=== PATIENT | male | born 1975 | race Caucasian/White ===

== ENCOUNTER 2022-10-11 13:15 | Inpatient (IN) | payer MEDICAID, OTHER ==
--- NOTE | 2022-10-11 13:54 | ED ---
General Adult HPI - General Chief complaint: Psychiatric Symptoms Stated complaint: Mental Health Time Seen by Provider: 10/11/22 13:17 Source: patient, EMS, RN notes reviewed, old records reviewed Mode of arrival: EMS Limitations: no limitations - History of Present Illness Initial comments: Patient is a 47-year-old male with past medical history apparently for bipolar disorder who presents emergency department for psychiatric evaluation and is being petitioned by his mother. Patient refuses to answer any questions regarding his psychiatric state. Persistently states "I don't know anything." When I ask him medical questions, denies any other acute complaints otherwise and chest pain, abdominal pain, nausea, vomiting, cough. Presents for psy chiatric evaluation.Per EMS, patient flushed all of his medications down the toilet and he has a history of bipolar disorder. Patient refuses to answer questions regarding this. - Related Data Home Medications Medication Instructions Recorded Confirmed Albuterol Sulfate [Albuterol 2 puff PO RT-Q6H PRN 10/11/22 10/11/22 Sulfate Hfa] Atomoxetine HCl [Strattera] 100 mg PO DAILY 10/11/22 10/11/22 Docusate Sodium [Dok] 100 mg PO BID PRN 10/11/22 10/11/22 Ergocalciferol (Vitamin D2) 1,250 mcg PO WEEKLY 10/11/22 10/11/22 [Drisdol (50,000 Iu)] Ibuprofen [Motrin] 600 mg PO Q8HR PRN 10/11/22 10/11/22 Omeprazole [PriLOSEC] 20 mg PO DAILY 10/11/22 10/11/22 risperiDONE [RisperDAL] 2 mg PO TID 10/11/22 10/11/22 Allergies Allergy/AdvReac Type Severity Reaction Status Date / Time No Known Allergies Allergy Verified 10/11/22 15:01 Review of Systems ROS Statement: Those systems with pertinent positive or pertinent negative responses have been documented in the HPI. Review of Systems: CONST: Denies fever EYES: Denies blurry vision ENT: Denies nasal congestion C/V: Denies Chest pain RESP: Denies shortness of breath GI: Denies abdominal pain : Denies dysuria SKIN: Denies rash. MSK: Denies joint pain. NEURO: Denies headache ROS Other: All systems not noted in ROS Statement are negative. Past Medical History History of Any Multi-Drug Resistant Organisms: None Reported Past Psychological History: Bipolar Smoking Status: Current every day smoker Past Alcohol Use History: None Reported Past Drug Use History: None Reported General Exam - General Exam Comments Initial Comments: General: Appears in no acute distress. HEAD: Normal with no signs of head trauma. EYES: PERRLA, EOMI, conjunctiva normal, no discharge. Pupils 3 mm and equal bilaterally. ENT: Hearing grossly intact, normal oropharynx. RESPIRATORY: Clear breath sounds bilaterally. No wheezes, rales, or rhonchi. C/V: Regular rate and rhythm. S1 and S2 auscultated, peripheral pulses 2+ and intact throughout ABD: Abd is soft, nontender, nondistended EXT: no obvious deformity SKIN: No rashes or lesions observed on exposed skin. NEURO: Alert and oriented x 4. Moving all 4 extremities. Limitations: no limitations Course Vital Signs 10/11/22 10/11/22 13:23 15:29 Temperature 98.1 F Pulse Rate 111 H Respiratory 18 18 Rate Blood Pressure 158/103 O2 Sat by Pulse 98 Oximetry Medical Decision Making - Medical Decision Making Was pt. sent in by a medical professional or institution (, PA, BAKERY MACHINE MECHANIC, urgent care, hospital, or assisted...) When possible be specific @ -No Did you speak to anyone other than the patient for history (EMS, parent, family, police, friend...)? What history was obtained from this source @ -No Did you review nursing and triage notes (agree or disagree)? Why? @ -I reviewed and agree with nursing and triage notes Were old charts reviewed (outside hosp., previous admission, EMS record, old EKG, old radiological studies, urgent care reports/EKG's, assisted records)? Report findings @ -Petition was reviewed. Differential Diagnosis (chest pain, altered mental status, abdominal pain women, abdominal pain men, vaginal bleeding, weakness, fever, dyspnea, syncope, headache, dizziness, GI bleed, back pain, seizure, CVA, palpatations, mental health, musculoskeletal)? @ -Differential Mental Health Depression, anxiety, bipolar, psychosis, schizophrenia, borderline personality, situational depression, adjustment disorder, behavioral disorder, brain tumor, malingering, substance abuse, encephalopathy, medication reaction, dementia, hypothyroidism, degenerative neurologic disorder, lupus.... This is not meant to be all-inclusive list EKG interpreted by me (3pts min.). @ -None done X-rays interpreted by me (1pt min.). @ -None done CT interpreted by me (1pt min.). @ -None done U/S interpreted by me (1pt. min.). @ -None done What testing was considered but not performed or refused? (CT, X-rays, U/S, labs)? Why? @ -None What meds were considered but not given or refused? Why? @ -None Did you discuss the management of the patient with other professionals (professionals i.e. , PA, BAKERY MACHINE MECHANIC, lab, RT, psych nurse, social service manager, data operations director, teacher, transit police officer, oil field caser)? Give summary @ -EPS notified of the consult Was smoking cessation discussed for >3mins.? @ -No Was critical care preformed (if so, how long)? @ -No Were there social determinants of health that impacted care today? How? (Homelessness, low income, unemployed, alcoholism, drug addiction, transportation, low edu. Level, literacy, decrease access to med. care, residential, rehab)? @ -No Was there de-escalation of care discussed even if they declined (Discuss DNR or withdrawal of care, Hospice)? DNR status @ -No What co-morbidities impacted this encounter? (DM, HTN, Smoking, COPD, CAD, Cancer, CVA, ARF, Chemo, Hep., AIDS, mental health diagnosis, sleep apnea, morbid obesity)? @ -Bipolar Was patient admitted / discharged? Hospital course, mention meds given and route, prescriptions, significant lab abnormalities, going to OR and other pertinent info. @ -Based on the patient's presentation and physical exam, presents for psychiatric evaluation. Patient placed in green scrubs. BAT is 0. UDS is pending. There was ordered. Vital signs within acceptable limits. The patient requires psychiatric evaluation. He is medically cleared for evaluation at this time. Disposition is pending psychiatric evaluation. EPS notified. SAMAN Oconnor evaluated the patient. Determined that he does meet inpatient criteria. Patient will be admitted to inpatient psychiatry in stable condition. Undiagnosed new problem with uncertain prognosis? @ -No Drug Therapy requiring intensive monitoring for toxicity (Heparin, Nitro, I nsulin, Cardizem)? @ -No Were any procedures done? @ -No Diagnosis/symptom? @ -Encounter for psychiatric evaluation, acute psychosis Acute, or Chronic, or Acute on Chronic? @ -Acute Uncomplicated (without systemic symptoms) or Complicated (systemic symptoms)? @ -Complicated Side effects of treatment? @ -No Exacerbation, Progression, or Severe Exacerbation? @ -No Poses a threat to life or bodily function? How? (Chest pain, [place], [place], pneumonia, PE, COPD, DKA, ARF, appy, cholecystitis, CVA, Diverticulitis, Homicidal, Suicidal, threat to staff... and all critical care pts) @ -No - Lab Data Lab Results 10/11/22 Range/Units 14:33 Coronavirus (PCR) Not Detected (Not Detectd) Disposition Clinical Impression: Encounter for psychiatric assessment, Acute psychosis Disposition: TRANSFER TO PSYCH HOSP/UNIT Condition: Stable
[2022-10-11] MEDS ORDERED: LORazepam 1 MG TAB PO STA (14:01)
[2022-10-11] MEDS ORDERED: HALOPERIDOL LACTATE 5 MG/ML 1 ML VIAL IM PRN (14:02)
[2022-10-11] MEDS ORDERED: LORazepam 2 MG/ML INJ IM PRN (14:02)
[2022-10-11] MEDS ORDERED: MAG HYDROX/AL HYDROX/SIMETH 30 ML CUP PO PRN (15:24)
[2022-10-11] MEDS ORDERED: MAGNESIUM HYDROXIDE 2,400 MG/30 ML CUP PO PRN (15:24)
[2022-10-11] MEDS ORDERED: ALBUTEROL INHALER 60 PUFF/8 GM INHALER (MHU) INHALATION PRN (15:34)
[2022-10-11] MEDS: haloperidoL 5 MG TAB PO PRN (23:03)
[2022-10-11] MEDS: LORazepam 1 MG TAB PO PRN (23:03)
[2022-10-12] MEDS: LORazepam 2 MG/ML INJ IM PRN (01:04)
[2022-10-12] MEDS: HALOPERIDOL LACTATE 5 MG/ML 1 ML VIAL IM PRN (01:05)
[2022-10-12] MEDS: NICOTINE 14MG/24HR PATCH TRANSDERM SCH (02:16)
--- NOTE | 2022-10-12 09:00 | P.HP ---
Psychiatric H&P - . H&P Date: 10/12/22 History & Physical: Allergies Allergy/AdvReac Type Severity Reaction Status Date / Time No Known Allergies Allergy Verified 10/11/22 15:01 Vital Signs Temp 97.5 F L 10/11/22 16:46 Pulse 100 10/11/22 16:46 Resp 16 10/11/22 16:46 BP 143/83 10/11/22 16:46 Pulse Ox 98 10/11/22 16:46 FiO2 Intake & Output 10/11/22 10/12/22 10/12/22 18:59 06:59 18:59 Weight 134.717 kg Laboratory Last Values Coronavirus (PCR) Not Detected (Not Detectd) 10/11/22 14:33 10/12/22 08:53 Visit psychiatric assessment on Ariel Fernández who is a 47-year-old male with a history of bipolar disorder Patient was petitioned by his mother and brought to the ER for assessment and treatment Patient had become increasingly paranoid psychotic and delusional and was afraid of people trying to get him Patient had also been exhibiting delusional thinking where he thought that there were killers walking on the streets and was barricading himself in the house The patient blames it on his current medication adjustments by his psychiatrist Patient reports that he was doing well on Invega 8 mg a day but seemed to started to gain weight . Patient stated that they've been started Wellbutrin which made him more anxious and agitated and was switched to Strattera which seemed to agree well with him He states that he was up 100 mg of Strattera a day and was able to lose about 36 pounds and was more active and focused However at this then turned into agitation and paranoia and racing thoughts and delusional thinking and he stopped taking the Strattera He states that he would like to go back to the Risperdal as he was taking before Patient is also open to other medication adjustments. 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 Fair eye contact Speech: Patient's speech is with normal volume, spontaneity, and tone. Mood/Affect: Mood is "flat Suicidality/Homicidality: Patient reports no suicidal ideation. Perceptions: The patient does not endorse auditory hallucinations but no visual hallucinations. Though content/process: Coherent and relevant goal-directed Memory and concentration: Grossly intact for the purposes of this session. Judgment and insight: Fair Diagnostic impression: Bipolar disorder recurrent manic type Adjustment disorder with disturbance of affect and conduct Alcohol use disorder by history in partial remission Plan: -Patient continues to meet criteria for inpatient psychiatric admission for symptom stabilization and safety. -Medications: We'll start the patient on Risperdal 2 mg twice a day and Depakote 500 mg twice a day to start within titrated to response Patient was briefed on the effects and side effects of the medication H he appears to understand well Patient at this time does not exhibit any bizarre behavior agitation and aggres aure or impulsive behavior continue close observation and supportive care -When necessary Ativan and Haldol for agitation/aggression. -NRT - nicotine patch -SW on board for discharge planning. Encouraged the patient to participate in milieu. Martin Hazel M.D.
[2022-10-12] MEDS: risperiDONE 2 MG TAB PO SCH ×2 (09:28→19:09)
[2022-10-12] MEDS: DIVALPROEX 500 MG TABLET.DR PO SCH ×2 (09:28→19:09)
--- NOTE | 2022-10-12 16:22 | P.PN ---
Progress Note - Text Progress Note Date: 10/12/22 Discussed with nursing and patient is currently not appropriate for medical evaluation. He was agitated and is now resting and they do not want him disturbed.
[2022-10-12 19:26] LABS: Appearance,Urine Clear (Clear); Bilirubin,Urine Negative (Negative); Blood,Urine Negative (Negative); Color,Urine Yellow; Glucose,Urine (UA) Negative (Negative); Ketones,Urine Negative (Negative); Leukocyte Esterase,Urine Negative (Negative); Nitrite,Urine Negative (Negative); PH, Urine 5.5 (5.0-8.0); Protein,Urine Trace (Negative); Specific Gravity,Urine 1.029 (1.001-1.035); Urobilinogen,Urine <2.0 mg/dL (<2.0)
[2022-10-12 19:43] LABS: Amphetamine Screen,Urine Not Detected (NotDetected); Barbiturate Screen,Urine Not Detected (NotDetected); Benzodiazepines Screen,Urine Detected (NotDetected); Cocaine Screen,Urine Not Detected (NotDetected); Methadone Screen, Urine Not Detected (NotDetected); Opiate Screen,Urine Not Detected (NotDetected); Oxycodone Screen, Urine Not Detected (NotDetected); Phencyclidine Screen,Urine Not Detected (NotDetected); Tricyclic Antidepressant,Urine Not Detected (NotDetected); Urn Cannabinoid Scrn Not Detected (NotDetected)
[2022-10-13] MEDS: risperiDONE 2 MG TAB PO SCH (08:07)
[2022-10-13] MEDS: NICOTINE 14MG/24HR PATCH TRANSDERM SCH ×2 (08:07→14:04)
[2022-10-13] MEDS: DIVALPROEX 500 MG TABLET.DR PO SCH (08:08)
--- NOTE | 2022-10-13 11:24 | P.PN ---
Progress Note - Text Progress Note Date: 10/13/22 Interval History: Patient was seen [wandering the hallways] at the nurse's desk, frequently emiliano nding and yelling out to be released from the unit. She was directable and agreeable to speak with copy writer in the office. Patient appeared to have very poor insight and judgment, he was fairly focused on discharge and minimizing his need for treatment. He claims that "I signed myself and I can sign myself out". He states that he is only wanted to take Risperdal at this time does not want any other medications. He claims that his grandmother can come pick him up right now. He is very poor impulse control, yelling at times and demanding. Denied any problems with his mood. He did not describe fully to situation 11, and at the hospital and was minimizing it. At this time patient denies any suicidal or homical ideations, intent or plan. Patient denies any auditory, visual hallucinations and denies any paranoia or delusions. Patient stopped taking the Depakote yesterday after the first dose due to possible side effects. Mental Status Exam: General Appearance: Patient appears to be tall, shaved head, stated age is alert, and is uncooperative, demanding. Behavior: Patient is sitting up without any agitated behavior. Irritable. Demanding. Speech: Patient's speech is with loud volume, spontaneity, and tone. Mood/Affect: Mood is "okay" and denies any depression, affect is constricted. Suicidality/Homicidality: Patient reports no suicidal ideation, denies any homicidal ideations. Perceptions: The patient does not endorse auditory hallucinations but no visual hallucinations. Though content/process: Coherent, concrete. Demanding focused on discharge. Minimizing. Memory and concentration: Grossly intact for the purposes of this session. Alert and oriented 3. Judgment and insight: Poor and impulsive Diagnostic impression: Bipolar disorder recurrent manic type Adjustment disorder with disturbance of affect and conduct Alcohol use disorder nicotine dependence Plan: -Patient continues to meet criteria for inpatient psychiatric admission for symptom stabilization and safety. Will complete petition and two certificates today as patient has very poor insight and judgment and non ocmpliant with meds. -Medications: increase Risperdal 3 mg twice a day for mood stabilization/psychosis, d/c depakote due to possible s/e. -When necessary Ativan and Haldol for agitation/aggression. -NRT - nicotine patch -SW on board for discharge planning. Encouraged the patient to participate in milieu. will await deferral and court hearing date.
[2022-10-13] MEDS ORDERED: risperiDONE 2 MG TAB PO STA (11:39)
[2022-10-13 13:25] LABS: Potassium 4.1 mmol/L (3.5-5.1)
[2022-10-13 13:26] LABS: ALT 95 U/L (4-49); AST 123 U/L (17-59); African American GFR (CKD) >90 (>60 ml/min/1.73 sqM); Albumin 4.5 g/dL (3.5-5.0); Alkaline Phosphatase 78 U/L (38-126); Anion Gap 6 mmol/L; Blood Urea Nitrogen 12 mg/dL (9-20); Calcium 9.2 mg/dL (8.4-10.2); Carbon Dioxide 27 mmol/L (22-30); Chloride 106 mmol/L (98-107); Glucose 132 mg/dL (74-99); Non-African American GFR(CKD) >90 (>60 ml/min/1.73 sqM); Sodium 139 mmol/L (137-145); Total Bilirubin 0.6 mg/dL (0.2-1.3); Total Protein 7.3 g/dL (6.3-8.2)
[2022-10-13] MEDS: ACETAMINOPHEN TAB 325 MG TAB PO PRN (15:03)
[2022-10-13] MEDS: risperiDONE 1 MG TAB PO SCH (19:57)
[2022-10-13] MEDS: IBUPROFEN 600 MG TAB PO PRN (20:32)
[2022-10-14] MEDS: ACETAMINOPHEN TAB 325 MG TAB PO PRN (00:36)
[2022-10-14] MEDS: NICOTINE 14MG/24HR PATCH TRANSDERM SCH (08:17)
[2022-10-14] MEDS: risperiDONE 1 MG TAB PO SCH (09:48)
--- NOTE | 2022-10-14 09:59 | P.PN ---
Progress Note - Text Progress Note Date: 10/14/22 Interval History: Patient was seen near the nurse's desk today, he apparently has been hanging out in the hallways and demanding discharge several times. He was approached by sheet writer and asked if he wanted to speak multiple times however patient refused to acknowledge sheet writer and did not answer any questions. Staff claims the patient has been paranoid and fairly focused on his medication regimen taking Risperdal 4 times a day. Mental Status Exam: General Appearance: Patient appears to be tall, shaved head, stated age is alert, and is uncooperative Behavior: Paranoid and uncooperative. Speech: Patient's speech is with loud volume, spontaneity, and tone. Mood/Affect: Unable to assess Suicidality/Homicidality: Unable to assess Perceptions: The patient unable to assess Though content/process: Unable to assess Memory and concentration: Unable to assess Judgment and insight: Poor and impulsive Diagnostic impression: Bipolar disorder recurrent manic type Adjustment disorder with disturbance of affect and conduct Alcohol use disorder nicotine dependence Plan: -Patient continues to meet criteria for inpatient psychiatric admission for symptom stabilization and safety. Will complete petition and two certificates today as patient has very poor insight and judgment and non ocmpliant with meds. -Medications: Risperdal 3 mg twice a day for mood stabilization/psychosis. may need to change patients antipsychotic if patient is not improving. -When necessary Ativan and Haldol for agitation/aggression. -NRT - nicotine patch -SW on board for discharge planning. Encouraged the patient to participate in milieu. will await deferral and court hearing date.
[2022-10-14] MEDS: risperiDONE 2 MG TAB PO SCH ×2 (13:43→20:04)
[2022-10-14] MEDS: ERGOCALCIFEROL 1,250 MCG (50,000 IU) CAPSULE PO SCH (14:42)
[2022-10-14] MEDS: IBUPROFEN 600 MG TAB PO PRN (14:43)
[2022-10-15] MEDS: NICOTINE 14MG/24HR PATCH TRANSDERM SCH (07:40)
[2022-10-15] MEDS ORDERED: risperiDONE 2 MG TAB PO SCH ×2 (09:00→13:00)
[2022-10-15] MEDS: IBUPROFEN 600 MG TAB PO PRN (09:14)
[2022-10-15] MEDS: risperiDONE 2 MG TAB PO SCH ×2 (12:00→19:39)
--- NOTE | 2022-10-15 12:04 | P.PN ---
Progress Note - Text Progress Note Date: 10/15/22 Interval History: Patient was seen during hallways, she was agreeable to be directed today in his room. He thanked sports writer for putting him back on the Risperdal at his previous dose. He states that he is doing a bit better today with his mood. He claims that he is having less racing thoughts. We spoke about transitioning onto long- acting injection and patient was agreeable to it. He asked questions about it. He states that he was able to sleep better last night with medications. He sta johanna that he has not been going to many groups. Has been showering. He claimed that his appetite is fair at this time. At this time is denying any auditory or visual hallucinations. Denying any suicidal or homicidal ideations intent or plan. He is not reporting any side effects. Mental Status Exam: General Appearance: Patient appears to be tall, shaved head, stated age is alert, and is more cooperative today. Behavior: As paranoid, more cooperative. Speech: Patient's speech is with loud volume, spontaneity, and tone. On [place] Mood/Affect: Claims that his mood is improving, affect is concrete and constricted. Suicidality/Homicidality: Denies Perceptions: Denies Though content/process: [place], poverty of content. Logical. Memory and concentration: Alert and oriented 3, following commands. Judgment and insight: Poor, improving mildly Diagnostic impression: Bipolar disorder recurrent manic type Adjustment disorder with disturbance of affect and conduct Alcohol use disorder nicotine dependence Plan: -Patient continues to meet criteria for inpatient psychiatric admission for symptom stabilization and safety. Will complete petition and two certificates today as patient has very poor insight and judgment and non ocmpliant with meds. -Medications: decrease Risperdal to 2mg + 4 mg a day for mood stabilization/psychosis. patiet is agreeable to transitioned onto HORTON starting today. patient will need a second dose likely thursday. -When necessary Ativan and Haldol for agitation/aggression. -NRT - nicotine patch -SW on board for discharge planning. Encouraged the patient to participate in milieu. will await deferral and court hearing date. possible d/c thursday - thursday if paitent defers and takes the HORTON to ensure compliance.
[2022-10-15] MEDS ORDERED: PALIPERIDONE IM 234 MG/1.5 ML SYG IM ONE (18:00)
[2022-10-16] MEDS: NICOTINE 14MG/24HR PATCH TRANSDERM SCH (07:46)
[2022-10-16] MEDS: IBUPROFEN 600 MG TAB PO PRN ×2 (09:59→18:35)
--- NOTE | 2022-10-16 11:14 | P.PN ---
Progress Note - Text Progress Note Date: 10/16/22 Interval History: Patient was seen standing near the door with his belongings looking at the door. Trench Shovel Operator attempted to speak with patient and patient was initially nonresponsive and ignoring procedure writer however after procedure writer called a second and third time patient turned to him and claims that "I'm waiting for my girlfriend and grandmother to pick me up". He states that he is doing fine at this time. He appears to have very poor insight into his condition and need for treatment. He continues to be fairly focused on his strict medication regimen. He states that he is doing a bit better today with his mood. He claims that he is having less racing thoughts. She'll receive the long-acting injection yesterday loading dose. He asked questions about it. He states that he was able to sleep better last night with medications. He states that he has not been going to many groups. He claimed that his appetite is fair at this time. He remains focused on discharge. At this time is denying any auditory or visual hallucinations. Denying any suicidal or homicidal ideations intent or plan. He is not reporting any side effects. Mental Status Exam: General Appearance: Patient appears to be tall, shaved head, stated age is alert, and is more cooperative today. Superficial. Behavior: As paranoid, more cooperative. Speech: Patient's speech is with loud volume, spontaneity, and tone. [place] Mood/Affect: Claims that his mood is improving, affect is concrete and constricted. Suicidality/Homicidality: Denies Perceptions: Denies Though content/process: [place], poverty of content. Is on discharge. Memory and concentration: Alert and oriented 3, following commands. Judgment and insight: Chronically Poor, improving mildly Diagnostic impression: Bipolar disorder recurrent manic type Adjustment disorder with disturbance of affect and conduct Alcohol use disorder nicotine dependence Plan: -Patient continues to meet criteria for inpatient psychiatric admission for symptom stabilization and safety. Will complete petition and two certificates today as patient has very poor insight and judgment and non ocmpliant with meds. -Medications: decrease Risperdal to 2mg + 3 mg a day for mood stabilization/psychosis. Patient received Invega Sustenna 234 mg IM on 10/15, next dose will be due on 10/20 of 156 mg IM, his monthly maintenance dose will be 234 mg which will be due on 11/09. -When necessary Ativan and Haldol for agitation/aggression. -NRT - nicotine patch -SW on board for discharge planning. Encouraged the patient to participate in milieu. will await deferral and court hearing date. possible d/c thursday - thursday if paitent defers and takes the HORTON to ensure compliance.
[2022-10-16] MEDS: haloperidoL 5 MG TAB PO PRN (12:05)
[2022-10-16] MEDS: LORazepam 1 MG TAB PO PRN (12:05)
[2022-10-16] MEDS: risperiDONE 2 MG TAB PO SCH (12:05)
[2022-10-16] MEDS: risperiDONE 1 MG TAB PO SCH (20:00)
[2022-10-17] MEDS: NICOTINE 14MG/24HR PATCH TRANSDERM SCH (08:27)
--- NOTE | 2022-10-17 11:28 | P.PN ---
Progress Note - Text Progress Note Date: 10/17/22 Interval History: Patient was seen standing near the door and wandering the hallways. He contin ues to have his belongings with him. He remains focused on discharge. He continues to randomly endorse paranoid ideations. He informed keno writer that the breakfast sausage that he had this morning was "poison" he continues to endorse suspiciousness towards a keno writer and other staff members on the unit. He continues to be very focused on his strict medication regimen taking Risperdal 3 times a day. Assistant Cross Country Coach attempted to speak with him about the transition onto long- acting injection and patient claims that "now I just want to be on my pills". continues to have limited insight/judgment. continue to be irritable and labile. States that he is sleeping fairly at nighttime, has fair appetite. Has not been going to groups. At this time is denying any auditory or visual hallucinations. Denying any suicidal or homicidal ideations intent or plan. He is not reporting any side effects. Mental Status Exam: General Appearance: Patient appears to be tall, shaved head, stated age is alert, and is difficult to interact with. Behavior: As paranoid, bizarre and loud. Speech: Patient's speech is with loud volume, spontaneity, and tone. [place] Mood/Affect: Claims that his mood is "okay", affect is concrete and constricted. Suicidality/Homicidality: Denies Perceptions: Denies Though content/process: [place], poverty of content. Focused on discharge Memory and concentration: Alert and oriented 3, following commands. Judgment and insight: Chronically Poor, improving mildly Diagnostic impression: Bipolar disorder recurrent manic type Adjustment disorder with disturbance of affect and conduct Alcohol use disorder nicotine dependence Plan: -Patient continues to meet criteria for inpatient psychiatric admission for symptom stabilization and safety. Will complete petition and two certificates today as patient has very poor insight and judgment and non ocmpliant with meds. -Medications: decrease Risperdal to 3 mg qhs for mood stabilization/psychosis. Patient received Invega Sustenna 234 mg IM on 10/15, next dose will be due on 10/20 of 156 mg IM, will re-evaluate on thursday whether or not patient will need to switched onto more potent antipsychotic such as haldol vs prolixin. -When necessary Ativan and Haldol for agitation/aggression. -NRT - nicotine patch -SW on board for discharge planning. Encouraged the patient to participate in milieu. will await deferral and court hearing date.
[2022-10-17 13:24] LABS: African American GFR (CKD) >90 (>60 ml/min/1.73 sqM); Anion Gap 6 mmol/L; Blood Urea Nitrogen 10 mg/dL (9-20); Carbon Dioxide 31 mmol/L (22-30); Chloride 102 mmol/L (98-107); Glucose 109 mg/dL (74-99); Non-African American GFR(CKD) >90 (>60 ml/min/1.73 sqM); Potassium 4.7 mmol/L (3.5-5.1); Sodium 139 mmol/L (137-145)
[2022-10-17] MEDS: IBUPROFEN 600 MG TAB PO PRN (16:19)
[2022-10-17] MEDS: risperiDONE 1 MG TAB PO SCH (20:03)
[2022-10-18] MEDS: haloperidoL 5 MG TAB PO PRN ×2 (03:57→15:02)
[2022-10-18] MEDS: HALOPERIDOL LACTATE 5 MG/ML 1 ML VIAL IM PRN (07:27)
[2022-10-18] MEDS: LORazepam 2 MG/ML INJ IM PRN (07:27)
[2022-10-18] MEDS: NICOTINE 14MG/24HR PATCH TRANSDERM SCH (09:09)
[2022-10-18] MEDS: IBUPROFEN 600 MG TAB PO PRN (09:12)
[2022-10-18] MEDS ORDERED: HALOPERIDOL LACTATE 5 MG/ML 1 ML VIAL IM STA (15:44)
[2022-10-18] MEDS ORDERED: diphenhydrAMINE 50 MG/ML 1 ML VIAL IM STA (15:44)
[2022-10-18] MEDS ORDERED: LORazepam 2 MG/ML INJ IM STA (15:46)
[2022-10-18] MEDS ORDERED: risperiDONE 2 MG TAB PO STA (16:47)
--- NOTE | 2022-10-18 18:51 | P.PN ---
Progress Note - Text Progress Note Date: 10/18/22 Interval History: Patient was seen wandering the hallways and often lingering by the exit door holding onto his belongings. His presence is intimidating and he appears to have poor boundaries, so he was evaluated in the hallway near staff. He has had episodes of being disruptive on the unit, attending to internal stimuli, restless, checking the exit doors in hopes of eloping from the unit, focused on discharge. Per nursing report, he was awake most of the night and could be heard yelling from his room, talking about his grandmother "I am in heavens with my grandmother. Where is my grandmother? She is coming today!" So far today he has received Haldol 5 mg po x 2, Haldol 5 mg IM x 2, and Ativan 2 mg IM x 2, and Benadryl 50 mg IM x 1 for agitation and psychosis, with some benefit however he still continues to be active on the unit and linger by the doors of the unit. He was observed walking rapidly in the hallways with his fingers in this ears, as if he is trying to block out the voices. He told the nurse today his grandmother is rising up and down the elevator. After receiving his PRNs, he tells me he would like his Risperdal increased to 2 mg TID because he is hearing too many voices, and would like the Risperdal scheduled for 8am, noon and 8pm. He receive d his Invega Sustenna 234 mg IM on 10/15 and will due to the 156 mg IM booster on 10/20. At this time patient does not report any suicidal or homicidal ideations, intent or plan. Patient admits to auditory hallucinations and paranoia. Patient denies any side effects from the medications and has been compliant with meds. Mental Status Exam: General Appearance: Patient appears to be stated age, is tall obese male with intimidating presence. Behavior: Patient is restless, walking in the hallways with his fingers in his ears or lingering by the exit doors hoping to elope from the unit/ Speech: Patient's speech is fluent and non-pressured. Mood/Affect: Mood is irritable/restless, affect is congruent and constricted. Suicidality/Homicidality: Patient denies having any suicidal or homicidal idea tion intent or plan. Perceptions: Patient reports auditory hallucinations, appears to be attending to internal stimuli. Though content/process: There is evidence of paranoid delusional thought content and thought process is concrete and fixated on discharge. Memory and concentration: AOX2, grossly intact for the purposes of this session Judgment and insight: very poor Assessment/Plan: Continue with current diagnosis. Patient continues to meet criteria for inpatient psychiatric admission for symptom stabilization and safety. Increase Risperdal to 2 mg po TID for psychosis. Continue Haldol/Ativan Q6H PRN for agitation/psychosis. Will also add Benadryl 50 mg IM Q6H PRN for agitation. Monitor for medication compliance and for any psychotropic medication side effects. Will continue to monitor ongoing response to treatment. Encouraged participation in milieu. Elopement precautions.
[2022-10-18] MEDS: risperiDONE 2 MG TAB PO SCH (19:40)
[2022-10-19] MEDS: diphenhydrAMINE 50 MG/ML 1 ML VIAL IM PRN ×2 (01:21→20:29)
[2022-10-19] MEDS: HALOPERIDOL LACTATE 5 MG/ML 1 ML VIAL IM PRN ×2 (01:22→20:29)
[2022-10-19] MEDS: LORazepam 2 MG/ML INJ IM PRN (01:22)
[2022-10-19] MEDS: NICOTINE 14MG/24HR PATCH TRANSDERM SCH (08:32)
[2022-10-19] MEDS: risperiDONE 2 MG TAB PO SCH ×3 (08:32→19:10)
[2022-10-19] MEDS: haloperidoL 5 MG TAB PO PRN (08:52)
[2022-10-19] MEDS: IBUPROFEN 600 MG TAB PO PRN (17:51)
--- NOTE | 2022-10-19 18:15 | P.PN ---
Progress Note - Text Progress Note Date: 10/19/22 Interval history: Patient was seen wandering the hallways and often lingering by the exit door again today. Overnight, at around 1:20 am, he was attempting to leave the unit by checking the doors repeatedly and demanding discharge due to his delusional beliefs that his grandmother was here and he needed to go. A MR [facility] was called and patient was given Haldol 5 mg IM, Ativan 2 mg IM and Benadryl 50 mg IM x 1. He was then able to sleep for about 6 hours last night. At around 8:50 am he was up at the nurse's station asking for a po Haldol which was given for agitation/psychosis. On my assessment, he is observed pacing the hallways, appears internally preoccupied but less than the previous day and his boundaries are modestly improved, however he continues to be overtly delusional. He believes his grandmother is here and he needs to go, requests discharge. He states the PRN Ativan makes him feel "sick" and he prefers to not take that but he is ok with the PRN Haldol and Benadryl. At this time patient does not report any suicidal or homicidal ideations, intent or plan. Patient admits to auditory hallucinations and paranoia, but also attempts to minimize these today. Patient has been compliant with meds. Mental Status Exam: General Appearance: Patient appears to be stated age, is tall obese male with intimidating presence. Behavior: Patient is restless, walking in the hallways or lingering by the exit doors. Speech: Patient's speech is fluent and non-pressured. Mood/Affect: Mood is restless, affect is congruent and constricted. Suicidality/Homicidality: Patient denies having any suicidal or homicidal ideation intent or plan. Perceptions: Patient reports auditory hallucinations, appears to be attending to internal stimuli. Though content/process: There is evidence of paranoid delusional thought content and thought process is concrete and fixated on discharge. Memory and concentration: AOX2, grossly intact for the purposes of this session Judgment and insight: very poor Assessment/Plan: Continue with current diagnosis. Patient continues to meet criteria for inpatient psychiatric admission for symptom stabilization and safety. Continue Risperdal 2 mg po TID for psychosis. Increase Haldol from 5 mg Q6H PRN to 10 mg Q6H PRN for agitation. Discontinue PRN Ativan. Monitor for medication compliance and for any psychotropic medication side effects. Will continue to monitor ongoing response to treatment. Encouraged participation in milieu. Elopement precautions.
[2022-10-19] MEDS ORDERED: OLANZapine 10 MG VIAL IM PRN (21:27)
[2022-10-20] MEDS: diphenhydrAMINE 50 MG/ML 1 ML VIAL IM PRN (03:37)
[2022-10-20] MEDS: risperiDONE 2 MG TAB PO SCH (10:05)
[2022-10-20] MEDS: NICOTINE 14MG/24HR PATCH TRANSDERM SCH (10:06)
--- NOTE | 2022-10-20 11:20 | P.PN ---
Progress Note - Text Progress Note Date: 10/20/22 Interval History: Patient was seen standing near the door and wandering the hallways. Patient was also seen near the nurse's desk and medication window yelling at times randomly in the morning. Patient had his belongings with him in a bag. He repeatedly has been demanding to be discharged. He is very focused on still taking his Risperdal. Patient was agreeable to speak with magazine writer however did not want to go in the room. He continues to endorse paranoia and believes that "people are trying to kill me in here". He has very poor insight poor judgment and poor impulse control. He received several when necessary's of the weekend for attending to elope and pushing on the doors. Has not been going to groups. At this time is denying any auditory or visual hallucinations. Denying any suicidal or homicidal ideations intent or plan. Mental Status Exam: General Appearance: Patient appears to be tall, shaved head, stated age is alert, and is difficult to interact with. Behavior: As paranoid, bizarre and loud. Speech: Patient's speech is with loud volume, spontaneity, and tone. [place]. Demanding Mood/Affect: Claims that his mood is "fine", affect is inconcrete and constricted. Suicidality/Homicidality: Denies Perceptions: Denies Though content/process: [place], poverty of content. Focused on discharge. demanding Memory and concentration: Alert and oriented 3, following commands. Judgment and insight: Chronically Poor, improving mildly Diagnostic impression: Bipolar disorder recurrent manic type Adjustment disorder with disturbance of affect and conduct Alcohol use disorder nicotine dependence Plan: -Patient continues to meet criteria for inpatient psychiatric admission for symptom stabilization and safety. Will complete petition and two certificates today as patient has very poor insight and judgment and non ocmpliant with meds. -Medications: d/c Risperdal and replace with prolixin 5 mg bid for psychosis/mood stabilization. Patient received Invega Sustenna 234 mg IM on 10/15 however due to ineffectiveness will hold off on contiuing with this medication -When necessary Ativan and Haldol for agitation/aggression. -NRT - nicotine patch -SW on board for discharge planning. Encouraged the patient to participate in milieu. he did not defer, awaiting court this thursday.
[2022-10-20] MEDS ORDERED: PALIPERIDONE IM 156 MG/ML SYG IM ONE (13:00)
[2022-10-20] MEDS: IBUPROFEN 600 MG TAB PO PRN (17:38)
[2022-10-21] MEDS: NICOTINE 14MG/24HR PATCH TRANSDERM SCH (08:38)
[2022-10-21] MEDS: ERGOCALCIFEROL 1,250 MCG (50,000 IU) CAPSULE PO SCH (08:38)
--- NOTE | 2022-10-21 10:29 | P.PN ---
Progress Note - Text Progress Note Date: 10/21/22 Interval History: Patient was seen standing near the door and wandering the hallways and then re turn to his room. He was agreeable to speak to credit underwriter today. He continues to focus on his Risperdal and needing to take that medication. He claims that he slept better on it. States that he found it difficult to sleep last night. He was agreeable to try trazodone. He continues to have very limited insight and poor judgment. He claims that he is trying the Prolixin and states that it is helping him with his "thoughts". He is not endorsing any paranoia today or any delusions. He appears to be more directable today when speaking about the plan. he has not been going to many groups. At this time is denying any auditory or visual hallucinations. Denying any suicidal or homicidal ideations intent or plan. Mental Status Exam: General Appearance: Patient appears to be tall, shaved head, stated age is alert, and more directable. Behavior: more cooperative today, less intrusive Speech: Patient's speech is with loud volume, spontaneity, and tone. [place]. less Demanding Mood/Affect: Claims that his mood is "ok", affect is concrete and constricted, improving mildly Suicidality/Homicidality: Denies Perceptions: Denies Though content/process: [place], poverty of content. less focused on discharge. less demanding Memory and concentration: Alert and oriented 3, following commands. Judgment and insight: Chronically Poor, improving mildly Diagnostic impression: Bipolar disorder recurrent manic type Adjustment disorder with disturbance of affect and conduct Alcohol use disorder nicotine dependence Plan: -Patient continues to meet criteria for inpatient psychiatric admission for symptom stabilization and safety. -Medications: increase prolixin 6 mg bid for psychosis/mood stabilization. will transition patient onto [facility] once patient has court order. Patient received Invega Sustenna 234 mg IM on 10/15 however due to ineffectiveness will hold off on contiuing with this medication -When necessary Ativan and Haldol for agitation/aggression. -NRT - nicotine patch -SW on board for discharge planning. Encouraged the patient to participate in milieu. he did not defer, awaiting court this thursday. likely discharge before the end of the week once he is transitioned onto [facility] and improved.
[2022-10-21] MEDS: IBUPROFEN 600 MG TAB PO PRN (18:47)
[2022-10-21] MEDS: traZODone HCL 50 MG TAB PO SCH (21:28)
[2022-10-22] MEDS: NICOTINE 14MG/24HR PATCH TRANSDERM SCH (04:24)
[2022-10-22] MEDS: haloperidoL 5 MG TAB PO PRN ×3 (05:43→17:24)
[2022-10-22 11:44] VITALS: BMI 38.1
--- NOTE | 2022-10-22 14:25 | P.PN ---
Progress Note - Text Progress Note Date: 10/22/22 Interval History: Patient was seen standing near the door and wandering the hallways. Today luly torres had earplugs in his ears. He was agreeable to speak to marketing writer in his room. He wrapped a hospital gown around the corner of the door and attempted to block the door from closing. He pointed out the different locks on the doors and believes that "you guys have the keys utilized and lock me in here". He continues to endorse suspiciousness and paranoia towards others and believes that other staff members might be trying to kill him. He continues to be focused on discharge. Claims that he slept poorly last night. He continues to have very limited insight and poor judgment. he has not been going to many groups. At this time is denying any auditory or visual hallucinations. Denying any suicidal or homicidal ideations intent or plan. Mental Status Exam: General Appearance: Patient appears to be tall, shaved head, stated age is alert, and more directable. Behavior: more cooperative today, less intrusive Speech: Patient's speech is with loud volume, spontaneity, and tone. [place]. Demanding Mood/Affect: Claims that his mood is "fine", affect is concrete and constricted, improving mildly Suicidality/Homicidality: Denies Perceptions: Denies Though content/process: [place], poverty of content. less focused on discharge. demanding Memory and concentration: Alert and oriented 3, following commands. Judgment and insight: Chronically Poor Diagnostic impression: Bipolar disorder recurrent manic type Adjustment disorder with disturbance of affect and conduct Alcohol use disorder nicotine dependence Plan: -Patient continues to meet criteria for inpatient psychiatric admission for symptom stabilization and safety. -Medications: increase prolixin 5 mg tid for psychosis/mood stabilization. will transition patient onto [facility] once patient has court order. Patient received I nvega Sustenna 234 mg IM on 10/15 however due to ineffectiveness will hold off on continuing with this medication. will consider adding depakote if needed. -When necessary Ativan and Haldol for agitation/aggression. -NRT - nicotine patch -SW on board for discharge planning. Encouraged the patient to participate in milieu. he did not defer, awaiting court today. possible discharge before the end of the week once he is transitioned onto [facility] and improved.
[2022-10-22] MEDS: HALOPERIDOL LACTATE 5 MG/ML 1 ML VIAL IM PRN (19:49)
[2022-10-22] MEDS: LORazepam 2 MG/ML INJ IM PRN (19:49)
[2022-10-22] MEDS: IBUPROFEN 600 MG TAB PO PRN (21:12)
[2022-10-22] MEDS: traZODone HCL 50 MG TAB PO SCH (21:13)
[2022-10-23] MEDS: NICOTINE 14MG/24HR PATCH TRANSDERM SCH (08:02)
[2022-10-23] MEDS: IBUPROFEN 600 MG TAB PO PRN (10:48)
[2022-10-23] MEDS: haloperidoL 5 MG TAB PO PRN ×2 (10:49→18:20)
--- NOTE | 2022-10-23 14:29 | P.PN ---
Progress Note - Text Progress Note Date: 10/23/22 Interval History: Patient was seen standing near the door and wandering the hallways. He contin ues to be at the nurse's desk frequently demanding discharge. Last night patient began being agitated delusional and paranoid towards others and believe that he was getting picked up by his grandmother at 7 PM. He required a when necessary Haldol injection due to agitation and aggression towards staff member. Patient appeared to be a bit calmer today however is fairly focused on discharge and continues to have very minimal insight and judgment. He has been taking his medications. Claims that he slept fairly last night. He is very superficial. Today patient had earplugs in his ears. He was agreeable to speak to caption writer in his room. He wrapped a hospital gown around the corner of the door and attempted to block the door from closing. He pointed out the different locks on the doors and believes that "you guys have the keys utilized and lock me in here". He continues to endorse suspiciousness and paranoia towards others and believes that other staff members might be trying to kill him. He mildly less paranoia today. he has not been going to many groups. At this time is denying any auditory or visual hallucinations. Denying any suicidal or homicidal ideations intent or plan. Mental Status Exam: General Appearance: Patient appears to be tall, shaved head, stated age is alert, and more directable. Behavior: more cooperative today, less intrusive Speech: Patient's speech is with loud volume, spontaneity, and tone. [place]. Demanding Mood/Affect: Claims that his mood is "ok", affect is concrete and constricted, improving mildly Suicidality/Homicidality: Denies Perceptions: Denies Though content/process: [place], poverty of content. less focused on discharge. demanding Memory and concentration: Alert and oriented 3, following commands. Judgment and insight: Chronically Poor Diagnostic impression: Bipolar disorder recurrent manic type with psychotic features Alcohol use disorder nicotine dependence Plan: -Patient continues to meet criteria for inpatient psychiatric admission for symptom stabilization and safety. -Medications: increase prolixin 10 mg bid for psychosis/mood stabilization. will transition patient onto [facility] once patient has court order. added depakote 500 mg bid for mood stabilization. trazodone 50 mg qhs for insomnia/mood -When necessary Ativan and Haldol for agitation/aggression. -NRT - nicotine patch -SW on board for discharge planning. Encouraged the patient to participate in milieu. patient will need to be transitioned onto [facility] prior to d/c. He received a court order for mental health treatment on 10/22
[2022-10-23] MEDS: DIVALPROEX ER 500 MG TAB.ER.24H PO SCH ×2 (15:40→19:52)
[2022-10-23] MEDS: traZODone HCL 50 MG TAB PO SCH (19:49)
[2022-10-23] MEDS: LORazepam 2 MG/ML INJ IM PRN (21:13)
[2022-10-24] MEDS: NICOTINE 14MG/24HR PATCH TRANSDERM SCH (03:52)
[2022-10-24] MEDS: haloperidoL 5 MG TAB PO PRN ×2 (03:52→12:04)
[2022-10-24] MEDS: DIVALPROEX ER 500 MG TAB.ER.24H PO SCH (09:18)
--- NOTE | 2022-10-24 12:03 | P.PN ---
Progress Note - Text Progress Note Date: 10/24/22 Interval History: Patient was seen standing near the door and wandering the hallways. He contin ues to perseverate on discharge. He was approached by expert medical writer and begin covering his ears. He told expert medical writer several times that "I'm not talking to you you're fired". He answered very few questions today and continues to focus on discharge and endorse paranoid thoughts. He continues to endorse suspiciousness and paranoia towards others and believes that other staff members might be trying to kill him. He mildly less paranoia today. he has not been going to many groups. At this time is denying any auditory or visual hallucinations. Denying any suicidal or homicidal ideations intent or plan. Mental Status Exam: General Appearance: Patient appears to be tall, shaved head, stated age is alert, and uncooperative today. Behavior: uncooperative today, less intrusive. Demanding. Speech: Patient's speech is with loud volume, spontaneity, and tone. [place]. Demanding Mood/Affect: Claims that his mood is "fine", affect is concrete and constricted Suicidality/Homicidality: Denies Perceptions: Denies Though content/process: [place], poverty of content. focused on discharge. demanding Memory and concentration: Alert and oriented 3, following commands. Judgment and insight: Chronically Poor Diagnostic impression: Bipolar disorder recurrent manic type with psychotic features Alcohol use disorder nicotine dependence Plan: -Patient continues to meet criteria for inpatient psychiatric admission for symptom stabilization and safety. -Medications: prolixin 10 mg bid for psychosis/mood stabilization. will transition patient onto [facility] once patient has court order. switched depakote to lithium 300 mg bid for mood stabilization. increase trazodone 100 mg qhs for insomnia/mood -When necessary Ativan and Haldol for agitation/aggression. -NRT - nicotine patch -SW on board for discharge planning. Encouraged the patient to participate in milieu. patient will need to be transitioned onto [facility] prior to d/c. He received a court order for mental health treatment on 10/22
[2022-10-24] MEDS: LITHIUM CARBONATE ER 450 MG TABLET.ER PO SCH ×2 (13:51→20:20)
[2022-10-24] MEDS: LORazepam 1 MG TAB PO PRN (16:32)
[2022-10-24] MEDS: IBUPROFEN 600 MG TAB PO PRN ×2 (16:46→20:12)
[2022-10-24] MEDS: traZODone HCL 100 MG TAB PO SCH (20:09)
[2022-10-25] MEDS: haloperidoL 5 MG TAB PO PRN ×4 (01:10→20:12)
[2022-10-25] MEDS: NICOTINE 14MG/24HR PATCH TRANSDERM SCH (01:35)
--- NOTE | 2022-10-25 08:36 | P.PN ---
Subjective Progress Note Date: 10/25/22 Principal diagnosis: Diagnostic impression: Bipolar disorder recurrent manic type with psychotic features Alcohol use disorder nicotine dependence Interval History: Patient was seen standing near the door and wandering the hallways. He came right up to me realizing it was a new doctor and maybe he could get me to let him go since he is constantly perseverating on discharge. "I can do better at home in hear people are trying to kill me." He says he will live in a house with his grandmother and they do fun things together like riding around ongoing carts. He has not been going to many groups. At this time is denying any auditory or visual hallucinations. Denying any suicidal or homicidal ideations intent or plan. He says that lots of people were trying to kill him and we talked about they gave him a shot which made the people who are angry at him go inside his head and talk to him all the time but that since he hasn't had the shot for a while they're no longer talking inside of his head. He says that he cannot take lithium because it yepez his stomach. So he has been refusing that he is on Prolixin. He says that " in addition to Prolixin he must have Haldol in the evening when he gets agitated and the other night when he is agitated and they wouldn't give him Haldol he almost ." Mental Status Exam: Eye contact is poor General Appearance: Patient appears to be tall, shaved head, stated age is alert, and uncooperative today. Behavior: uncooperative today, less intrusive. Demanding. Speech: Patient's speech is with loud volume, spontaneity, and tone. [place]. Demanding Mood/Affect: Claims that his mood is "fine", affect is concrete and constricted and does not fit with the fact that he is talking about people trying to kill him Suicidality/Homicidality: Denies Perceptions: Denies any kind of hallucination or delusion Though content/process: [place], poverty of content. focused on discharge. demanding Memory and concentration: Alert and oriented 3, following commands. Judgment and insight: Chronically Poor Diagnostic impression: Bipolar disorder recurrent manic type with psychotic features Alcohol use disorder nicotine dependence Plan: -Patient continues to meet criteria for inpatient psychiatric admission for symptom stabilization and safety. -Medications: prolixin 10 mg bid for psychosis/mood stabilization. I think it might be prasad to increase that to 15 rather than relying on when necessary Haldol. will transition patient onto [facility] once patient has court order. switched depakote to lithium 300 mg bid for mood stabilization. increase trazodone 100 mg qhs for insomnia/mood -When necessary Ativan and Haldol for agitation/aggression. -NRT - nicotine patch -SW on board for discharge planning. Encouraged the patient to participate in milieu. patient will need to be transitioned onto [facility] prior to d/c. He received a court order for mental health treatment on 10/22 Objective - Vital Signs Vital signs: Vital Signs Temp 96.5 F L 10/24/22 04:41 Pulse 98 10/24/22 04:41 Resp 16 10/24/22 04:41 BP 122/81 10/24/22 04:41 Pulse Ox 98 10/24/22 04:41 FiO2 - Labs CBC & Chem 7: 10/17/22 12:13
[2022-10-25] MEDS: LITHIUM CARBONATE ER 450 MG TABLET.ER PO SCH ×2 (09:21→20:15)
[2022-10-25] MEDS: IBUPROFEN 600 MG TAB PO PRN ×2 (10:36→20:12)
[2022-10-25] MEDS: LORazepam 1 MG TAB PO PRN ×2 (13:51→20:11)
[2022-10-25] MEDS: traZODone HCL 100 MG TAB PO SCH (20:12)
[2022-10-26] MEDS: LORazepam 1 MG TAB PO PRN ×3 (02:31→19:02)
[2022-10-26] MEDS: haloperidoL 5 MG TAB PO PRN ×4 (02:31→22:50)
[2022-10-26] MEDS: LITHIUM CARBONATE ER 450 MG TABLET.ER PO SCH (07:52)
[2022-10-26] MEDS: NICOTINE 14MG/24HR PATCH TRANSDERM SCH (07:52)
--- NOTE | 2022-10-26 09:06 | P.PN ---
Subjective Progress Note Date: 10/26/22 Interval History: Patient was much more cooperative and did not go on and on about were his discharge papers ready. . At this time is denying any auditory or visual hallucinations. Denying any suicidal or homicidal ideations intent or plan. He says that he will not take lithium because it yepez his stomach but that the other manic symptoms are fine. He is on Prolixin. He is almost overly positive about the Haldol wants to take it 4 times a day. Mental Status Exam: Eye contact is improved he does not seem to be agitated much more cooperative today General Appearance: Patient appears to be tall, shaved head, stated age is alert, and uncooperative today. Behavior: uncooperative today, less intrusive. Demanding. Speech: Patient's speech is with loud volume, spontaneity, and tone. [place]. Demanding Mood/Affect: Claims that his mood is "fine", affect is concrete and constricted and does not fit with the fact that he is talking about people trying to kill him Suicidality/Homicidality: Denies Perceptions: Denies any kind of hallucination or delusion Though content/process: [place], poverty of content. Temporarily he is less focused on discharge. He has less demanding Memory and concentration: Alert and oriented 3, following commands. Judgment and insight: Chronically Poor Diagnostic impression: Bipolar disorder recurrent manic type with psychotic features Alcohol use disorder nicotine dependence Assessment: I think he is doing better so for now we will hold the lithium as it seems to cause some physical problems. Plan: -Patient continues to meet criteria for inpatient psychiatric admission for symptom stabilization and safety. -Medications: prolixin 10 mg bid for psychosis/mood stabilization. I think it might be prasad to increase that to 15 rather than relying on when necessary Haldol. will transition patient onto [facility] once patient has court order. switched depakote to lithium 300 mg bid for mood stabilization. increase trazodone 100 mg qhs for insomnia/mood -When necessary Ativan and Haldol for agitation/aggression. -NRT - nicotine patch -SW on board for discharge planning. Encouraged the patient to participate in milieu. patient will need to be transitioned onto [facility] prior to d/c. He received a court order for mental health treatment on 10/22 Objective - Vital Signs Vital signs: Vital Signs Temp 96.5 F L 10/24/22 04:41 Pulse 98 10/24/22 04:41 Resp 16 10/24/22 04:41 BP 122/81 10/24/22 04:41 Pulse Ox 98 10/24/22 04:41 FiO2 - Labs CBC & Chem 7: 10/17/22 12:13
[2022-10-26 12:29] LABS: Glucose,Whole Blood 166 mg/dL (70-110)
[2022-10-26] MEDS: traZODone HCL 100 MG TAB PO SCH (19:57)
[2022-10-26] MEDS: IBUPROFEN 600 MG TAB PO PRN (19:57)
[2022-10-27] MEDS: LORazepam 1 MG TAB PO PRN ×4 (03:26→22:08)
[2022-10-27] MEDS: IBUPROFEN 600 MG TAB PO PRN (06:56)
[2022-10-27] MEDS: haloperidoL 5 MG TAB PO PRN ×3 (06:57→18:45)
[2022-10-27] MEDS: NICOTINE 14MG/24HR PATCH TRANSDERM SCH (08:27)
--- NOTE | 2022-10-27 10:27 | P.PN ---
Progress Note - Text Progress Note Date: 10/27/22 Interval History: Patient was seen wandering the hallways and was agreeable to speak to database report writer in his room today. Patient has been taking his meds over the weekend and his Prolixin has been increased to 50 mg twice a day. Patient states that he is not having any issues with medications at this time. Continues to be fairly concrete. There is a superficial with database report writer. He is not endorsing any paranoia at this time. He received a Haldol when necessary dose for unknown reasons. She was less perseverating on discharge today. He states that he is able to sleep very well last night. He appears to be less threatening and intimidating today. he has not been going to many groups continues to wander the hallways. At this time is denying any auditory or visual hallucinations. Denying any suicidal or homicidal ideations intent or plan. Mental Status Exam: General Appearance: Patient appears to be tall, shaved head, stated age is alert, and more cooperative today. Behavior: uncooperative today, less intrusive. less Demanding. Speech: Patient's speech is with loud volume, spontaneity, and tone. [place]. less Demanding Mood/Affect: Claims that his mood is "ok", affect is concrete and constricted Suicidality/Homicidality: Denies Perceptions: Denies Though content/process: [place], poverty of content. less focused on discharge Memory and concentration: Alert and oriented 3, following commands. Judgment and insight: Chronically Poor, improving mildly Diagnostic impression: Bipolar disorder recurrent manic type with psychotic features Alcohol use disorder nicotine dependence Plan: -Patient continues to meet criteria for inpatient psychiatric admission for symptom stabilization and safety. -Medications: continue with prolixin 15 mg bid for psychosis/mood stabilization. will order Prolixin D 50 mg IM today to help ensure compliance. continue trazodone 100 mg qhs for insomnia/mood -When necessary Ativan and Haldol for agitation/aggression. -NRT - nicotine patch -SW on board for discharge planning. Encouraged the patient to participate in milieu. patient will need to be transitioned onto [facility] prior to d/c. He received a court order for mental health treatment on 10/22. likely discharge in 2-3 days back home once he is stabilized.
[2022-10-27] MEDS ORDERED: fluPHENAZine DECANOATE 25 MG/ML 5ML MDV IM ONE (18:00)
[2022-10-27] MEDS: traZODone HCL 100 MG TAB PO SCH (19:59)
[2022-10-28] MEDS: haloperidoL 5 MG TAB PO PRN (03:25)
[2022-10-28] MEDS: IBUPROFEN 600 MG TAB PO PRN (03:27)
[2022-10-28 06:42] VITALS: BP 139/88; PULSE 98; RESP 18; TEMP 97.8
[2022-10-28] MEDS: LORazepam 1 MG TAB PO PRN (07:54)
[2022-10-28] MEDS: NICOTINE 14MG/24HR PATCH TRANSDERM SCH (07:54)
[2022-10-28] MEDS: ERGOCALCIFEROL 1,250 MCG (50,000 IU) CAPSULE PO SCH (07:54)
--- NOTE | 2022-10-28 10:23 | P.DS ---
Providers Date of admission: 10/11/22 15:21 Expected date of discharge: 10/28/22 Attending physician: Addy Caballero MD Consults: 10/11/22 15:24 Consult Physician Routine Consulting Provider: Rico Sherwood Consult Reason/Comments: medical management Do you want consulting provider notified?: Yes Primary care physician: Addy Millan - Discharge Diagnosis(es) (1) Bipolar disorder, current episode manic severe with psychotic features Current Visit: Yes Status: Acute Priority: High (2) Alcohol use disorder Current Visit: Yes Status: Acute Priority: Medium (3) Nicotine dependence Current Visit: Yes Status: Acute Priority: Low Hospital Course: Admission HPI: Admission note was completed by engineering technical writer "Visit psychiatric assessment on Ariel Fernández who is a 47-year-old male with a history of bipolar disorder Patient was petitioned by his mother and brought to the ER for assessment and treatment Patient had become increasingly paranoid psychotic and delusional and was afraid of people trying to get him Patient had also been exhibiting delusional thinking where he thought that there were killers walking on the streets and was barricading himself in the house The patient blames it on his current medication adjustments by his psychiatrist Patient reports that he was doing well on Invega 8 mg a day but seemed to started to gain weight . Patient stated that they've been started Wellbutrin which made him more anxious and agitated and was switched to Strattera which seemed to agree well with him He states that he was up 100 mg of Strattera a day and was able to lose about 36 pounds and was more active and focused However at this then turned into agitation and paranoia and racing thoughts and delusional thinking and he stopped taking the Strattera He states that he would like to go back to the Risperdal as he was taking before Patient is also open to other medication adjustments. On the unit patient remained anxious and worried and tried to confining himself to his room He told one of the nurses that he was only comfortable with her but seem to come out and was interviewed in the day room Patient at this time reports that he is open to adjustment in his medications and suggestions He denies any suicidal or homicidal He admits that he has some racing thoughts and was having auditory hallucinations but this time is not experiencing it" Hospital course: Upon admission to the unit patient was admitted involuntarily on a petition and certificate and a second certificate was completed and faxed with the courts. Patient ended up proceeding with a court hearing and received a mental health treatment order. Patient was initially bizarre, demanding and psychotic, with time in treatment he eventually got along well with other patients on the unit and followed unit protocol. Patient was compliant with the medications and denied any side effects throughout hospital course. Patient was started on Prolixin by mouth and increased her dose of 15 mg twice a day for psychosis/mood stabilization. Patient was transitioned onto Prolixin D, given 50 mg IM on 10/27 and tolerated it well, next dose will be due in 2 weeks on 11/10. Patient was also started on trazodone 100 mg daily at bedtime for insomnia. Patient did not go to many groups while on the unit. Patient was also seen by medical team for history and physical exam. Throughout the course of the hospitalization patient gradually improved with regards to mood, anxiety, psychosis/behavior, sleep and returned back to their baseline level of functioning. On the day of discharge patient denied any suicidal or homicidal ideations intent or plan denied any auditory or visual hallucinations. Patient endorsed wanting to live for his health and family. The patient denied any access to guns or weapons. Patient denied any paranoia and did not endorse any delusions. Patient does have a significant history of substance abuse and was counseled on abstaining from all substances including alcohol and marijuana. Patient was offered however declined inpatient substance-abuse rehab. Patient elected to do outpatient substance use treatment program through [facility]. Patient was also counseled on the medications and need for regular compliance and was encouraged to follow-up with their outpat ient appointment for mental health and also for primary care. Prior to discharge a family meeting will be arranged by 7th grade social studies teacher to answer any questions and ensure safety upon discharge. Mental status exam: General Appearance: Patient appears to be tall, shaved head, stated age is alert, pleasant, and cooperative. Patient is in no acute distress and has improved hygiene and grooming Behavior: Patient is calmly seated without any agitated behavior. Speech: Patient's speech is fluent and nonpressured. Mood/Affect: Patient reports their mood is "good", affect is congruent Suicidality/Homicidality: Patient denies having any suicidal or homicidal ideation intent or plan. Perceptions: Patient denies any auditory or visual hallucinations. Though content/process: There is no evidence of any delusional thought content and thought process is linear and goal-directed. [place] Memory and concentration: AOX3, grossly intact for the purposes of this session. Can spell "WORLD" backwards correctly. Judgment and insight: chronically poor, however has improved with guarded prognosis Impression: Bipolar disorder, current episode una, severe, with psychotic features Alcohol use disorder Nicotine dependence Plan: -Continue with discharge today as patient has improved and stabilized psychiatrically and is not currently an imminent threat to himself and/or others. Patient will remain at chronically elevated risk for harm to self and/or others due to his impulsivity and chronically poor insight and judgment. -Continue medications: Continue with by mouth Prolixin 10 mg twice a day for 3 more days then discontinue. Patient was given Prolixin D 50 mg IM on 10/27, next dose will be due in 2 weeks on 11/10. Trazodone 100 mg daily at bedtime when necessary for insomnia. -Patient was counseled on the need for medication compliance and appropriate follow-up at mental health and also primary care for medical issues. Patient verbalized understanding and agreed. -Social work to arrange for and conduct family meeting to ensure safety upon discharge and answer any questions/concerns. Social work also to arrange for patients follow up appointments with [facility] for psychiatric care along with follow up with primary care provider. -Patient counseled on abstaining from recreational drugs and marijuana and alcohol. Was informed/educated on the adverse effects on their physical and me ntal health. Patient verbally agreed and understood. Patient was offered substance abuse treatment however declined at this time. -Patient was instructed to return to the hospital or seek immediate medical care if their psychiatric or medical symptoms do worsen or reoccur. Allergies Allergy/AdvReac Type Severity Reaction Status Date / Time No Known Allergies Allergy Verified 10/11/22 15:01 Laboratory Results Sodium 139 mmol/L (137-145) 10/17/22 12:13 Potassium 4.7 mmol/L (3.5-5.1) 10/17/22 12:13 Chloride 102 mmol/L (98-107) 10/17/22 12:13 Carbon Dioxide 31 mmol/L (22-30) H 10/17/22 12:13 Anion Gap 6 mmol/L 10/17/22 12:13 BUN 10 mg/dL (9-20) 10/17/22 12:13 Creatinine 0.82 mg/dL (0.66-1.25) 10/17/22 12:13 Est GFR (CKD-EPI)AfAm >90 (>60 ml/min/1.73 sqM) 10/17/22 12:13 Est GFR (CKD-EPI)NonAf >90 (>60 ml/min/1.73 sqM) 10/17/22 12:13 Glucose 109 mg/dL (74-99) H 10/17/22 12:13 POC Glucose (mg/dL) 166 mg/dL (70-110) H 10/26/22 12:27 POC Glu Metal Buggy Operator ID Tere Zimmer 10/26/22 12:[address] Glu mg/dL 117 mg/dL 10/13/22 12:19 Hemoglobin A1c 5.7 % (<=6.0) 10/13/22 12:19 Calcium 10.0 mg/dL (8.4-10.2) 10/17/22 12:13 Total Bilirubin 0.6 mg/dL (0.2-1.3) 10/13/22 12:19 AST 123 U/L (17-59) H 10/13/22 12:19 ALT 95 U/L (4-49) H 10/13/22 12:19 Alkaline Phosphatase 78 U/L (38-126) 10/13/22 12:19 Total Protein 7.3 g/dL (6.3-8.2) 10/13/22 12:19 Albumin 4.5 g/dL (3.5-5.0) 10/13/22 12:19 TSH 0.639 mIU/L (0.465-4.680) 10/13/22 12:19 Urine Color Yellow 10/12/22 19:06 Urine Appearance Clear (Clear) 10/12/22 19:06 Urine pH 5.5 (5.0-8.0) 10/12/22 19:06 Ur Specific [place] 1.029 (1.001-1.035) 10/12/22 19:06 Urine Protein Trace (Negative) H 10/12/22 19:06 Urine Glucose (UA) Negative (Negative) 10/12/22 19:06 Urine Ketones Negative (Negative) 10/12/22 19:06 Urine Blood Negative (Negative) 10/12/22 19:06 Urine Nitrite Negative (Negative) 10/12/22 19:06 Urine Bilirubin Negative (Negative) 10/12/22 19:06 Urine Urobilinogen <2.0 mg/dL (<2.0) 10/12/22 19:06 Ur Leukocyte Esterase Negative (Negative) 10/12/22 19:06 Urine Opiates Screen Not Detected (NotDetected) 10/12/22 19:06 Ur Oxycodone Screen Not Detected (NotDetected) 10/12/22 19:06 Urine Methadone Screen Not Detected (NotDetected) 10/12/22 19:06 Ur Propoxyphene Screen Not Detected (NotDetected) 10/12/22 19:06 Ur Barbiturates Screen Not Detected (NotDetected) 10/12/22 19:06 U Tricyclic Antidepress Not Detected (NotDetected) 10/12/22 19:06 Ur Phencyclidine Scrn Not Detected (NotDetected) 10/12/22 19:06 Ur Amphetamines Screen Not Detected (NotDetected) 10/12/22 19:06 U Methamphetamines Scrn Not Detected (NotDetected) 10/12/22 19:06 U Benzodiazepines Scrn Detected (NotDetected) H 10/12/22 19:06 Urine Cocaine Screen Not Detected (NotDetected) 10/12/22 19:06 U Marijuana (THC) Screen Not Detected (NotDetected) 10/12/22 19:06 Coronavirus (PCR) Not Detected (Not Detectd) 10/11/22 14:33 Vital Signs Temp 97.8 F 10/28/22 06:38 Pulse 98 10/28/22 06:38 Resp 18 10/28/22 06:38 BP 139/88 10/28/22 06:38 Pulse Ox 98 10/28/22 03:29 FiO2 Patient Condition at Discharge: Stable Plan - Discharge Summary Discharge Rx Participant: Yes New Discharge Prescriptions: New traZODone HCL [Desyrel] 100 mg PO HS PRN 30 Days #30 tab PRN Reason: insomnia Nicotine 14Mg/24Hr Patch [Habitrol] 1 patch TRANSDERM DAILY 14 Days #14 patch fluPHENAZine [Prolixin] 10 mg PO BID 3 Days #12 tab fluPHENAZine decanoate [Prolixin Decanoate] 50 mg IM [id number] #1 each Continue Ibuprofen [Motrin] 600 mg PO Q8HR PRN PRN Reason: Fever And/ Or Pain Albuterol Sulfate [Albuterol Sulfate Hfa] 2 puff PO RT-Q6H PRN PRN Reason: Shortness Of Breath Ergocalciferol (Vitamin D2) [Drisdol (50,000 Iu)] 1,250 mcg PO WEEKLY 28 Days #4 cap Discontinued risperiDONE [RisperDAL] 2 mg PO TID Atomoxetine HCl [Strattera] 100 mg PO DAILY Discharge Medication List Albuterol Sulfate [Albuterol Sulfate Hfa] 2 puff PO RT-Q6H PRN 10/11/22 [History] Ibuprofen [Motrin] 600 mg PO Q8HR PRN 10/11/22 [History] Ergocalciferol (Vitamin D2) [Drisdol (50,000 Iu)] 1,250 mcg PO WEEKLY 28 Days #4 cap 10/28/22 [Rx] Nicotine 14Mg/24Hr Patch [Habitrol] 1 patch TRANSDERM DAILY 14 Days #14 patch 10/28/22 [Rx] fluPHENAZine [Prolixin] 10 mg PO BID 3 Days #12 tab 10/28/22 [Rx] fluPHENAZine decanoate [Prolixin Decanoate] 50 mg IM [id number] #1 each 10/28/22 [Rx] traZODone HCL [Desyrel] 100 mg PO HS PRN 30 Days #30 tab 10/28/22 [Rx] Follow up Appointment(s)/Referral(s): Addy Millan, [Primary Care Provider] - 1-2 days Activity/Diet/Wound Care/Special Instructions: Avoid the use of street drugs and alcohol. Take all medications as prescribed. When you are in need of refills on your medications, please contact your medical provider and/or outpatient psychiatrist/provider to have this done. Please go to your scheduled outpatient appointment for aftercare treatment. If symptoms return or become worse, call the crisis line at and/or go to the nearest emergency room for evaluation. National Suicide Hotline 988. Discharge Disposition: HOME SELF-CARE
== END 2022-10-28 13:59 | disposition home or self-care (01) | DRG 753 ==
LOC: EC 13:15 → 3MHU 15:21
PROVIDERS: ADMIT Psychiatry & Neurology Psychiatry; ATTEND Psychiatry & Neurology Psychiatry
DX: F31.2 Bipolar disorder, current episode manic severe with psychotic features (principal); F10.20 Alcohol dependence, uncomplicated; Z20.822 Contact with and (suspected) exposure to COVID-19; F43.25 Adjustment disorder with mixed disturbance of emotions and conduct; G47.00 Insomnia, unspecified; F17.210 Nicotine dependence, cigarettes, uncomplicated; Z71.6 Tobacco abuse counseling; Z79.899 Other long term (current) drug therapy; Z56.0 Unemployment, unspecified; Z71.51 Drug abuse counseling and surveillance of drug abuser; Z71.41 Alcohol abuse counseling and surveillance of alcoholic
CPT/HCPCS: 80048; 80053; 80306; 81003; 82075; 83036; 84443; 87635; 99285